=== PATIENT | male | born 1975 | race American Indian/Alaskan Native ===

== ENCOUNTER 2019-05-26 12:07 | Emergency (ER) | payer BC ==
--- NOTE | 2019-05-26 12:18 | Emergency Department Report ---
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 He was found to be unreachable by Internet. Police were notified. Apparently they have been out to the home more than once per the medics. Today the patient was found in a state of extremely poor hygiene with multiple empty bottles of alcohol. He was oriented to person but lacked adequate mental capacity to refuse care which he did. He was transported as a mentally incapacitated patient for medical screening at my direction. Medics state that the patient was very lethargic but able to speak in short sentences. Did not have a specific complaint. He was nonambulatory. He could stand only on substantial assistance. Medics questioned whether he had weakness of his left leg. On arrival he appears to have pain on passive range of motion of the left hip/pelvic area. He is able to normally dorsiflex and plantar flex his left foot. He is not found to have any other obvious focal deficit. He does not appear to be suffering from a stroke syndrome. He was found to be hypertensive in the field. -: days(s) Location: pelvis, left - Related Data Home Medications Medication Instructions Recorded Confirmed Last Taken No Known Home Medications [No 05/26/19 05/26/19 Unknown Reported Home Medications] Allergies Allergy/AdvReac Type Severity Reaction Status Date / Time No Known Allergies Allergy Unverified 05/26/19 12:18 ED Review of Systems ROS: Stated complaint: AMS Other details as noted in HPI Comment: Unobtainable due to pts medical conditions ED Past Medical Hx - Past Medical History Hx Hypertension: Yes - Social History Substance Use Type: Alcohol - Medications Home Medications: Home Medications Medication Instructions Recorded Confirmed Last Taken Type No Known Home Medications [No 05/26/19 05/26/19 Unknown History Reported Home Medications] ED Physical Exam - General Limitations: Altered Mental Status General appearance: lethargic - Head Head exam: Present: atraumatic, normocephalic - Eye Eye exam: Present: normal appearance, PERRL, EOMI. Absent: scleral icterus - ENT ENT exam: Present: mucous membranes dry - Neck Neck exam: Present: normal inspection. Absent: tenderness, meningismus - Respiratory Respiratory exam: Present: normal lung sounds bilaterally - Cardiovascular Cardiovascular Exam: Present: regular rate, normal rhythm. Absent: systolic murmur, diastolic murmur, rubs, gallop - GI/Abdominal GI/Abdominal exam: Present: soft, normal bowel sounds. Absent: distended, tenderness, guarding, rebound - Extremities Exam Extremities exam: Present: other (Pain on passive range of motion of the left hip) - Back Exam Back exam: Present: other (Unable to examine) - Neurological Exam Neurological exam: Present: altered, CN II-XII intact (As testable), motor sensory deficit (Sensory appears to be intact. There is loss of extension of th e left leg at the hip. Exam is at the knee is limited but appears to be weak as well. Patient was able to dorsi and plantar flex the foot.) - Psychiatric Psychiatric exam: Present: agitated, flat affect - Skin Skin exam: Present: warm, dry, intact, normal color. Absent: rash ED Course Vital Signs 05/26/19 05/26/19 05/26/19 12:08 12:11 12:15 Temperature 97.9 F Pulse Rate 110 H 110 H 110 H Respiratory 27 H 17 17 Rate Blood Pressure 184/124 184/124 O2 Sat by Pulse 94 97 97 Oximetry 05/26/19 05/26/19 05/26/19 12:30 12:46 13:00 Temperature Pulse Rate Respiratory Rate Blood Pressure 184/124 191/121 188/113 O2 Sat by Pulse 96 96 96 Oximetry 05/26/19 05/26/19 05/26/19 13:16 13:28 13:30 Temperature Pulse Rate 105 H 105 H 101 H Respiratory 21 19 Rate Blood Pressure 199/115 199/115 O2 Sat by Pulse 97 98 Oximetry 05/26/19 05/26/19 14:00 14:28 Temperature Pulse Rate 97 H 94 H Respiratory 19 Rate Blood Pressure 161/107 196/118 O2 Sat by Pulse 98 Oximetry - Reevaluation(s) Reevaluation #1: Blood pressure improved. Cardene never initiated. Discussed with neuro heavy equipment technician Dr. Blackwell. He recommended a saline bolus. This is ordered. He also accepted the patient for transfer to [facility]. 05/26/19 15:32 Reevaluation #2: This is a patient with a subacute pontine stroke, presumed rhabdomyolysis and acute kidney injury with severe acute renal failure, leukocytosis and possible sepsis with accelerated hypertension. He is currently a very high complexity patient needing additional acute work-up to include MR studies which are unavailable here, and neuro ICU which is unavailable here and multiple consultants. Dr. Kendall Blackwell the neuro heavy equipment technician at [facility] was very kind to accept this patient to the ICU at [facility]. The patient is in stable condition for transfer. There are many advantages to this patient and transferring him to a tertiary care center. 05/26/19 15:40 Reevaluation #3: I spoke with the neurologist recreation facility manager. He agreed this patient is not a candidate for TPA. 05/26/19 15:42 ED Medical Decision Making - Lab Data Result diagrams: 05/26/19 12:53 05/26/19 12:53 Laboratory Results - last 24 hr 05/26/19 05/26/19 12:53 12:53 WBC 23.9 H RBC 6.67 H Hgb 19.2 H Hct 57.8 H MCV 87 MCH 29 MCHC 33 RDW 15.1 Lymph % (Auto) Rehabilitation Aide/Scheduler Cowley % (Auto) Rehabilitation Aide/Scheduler Eos % (Auto) Rehabilitation Aide/Scheduler Baso % (Auto) Rehabilitation Aide/Scheduler Lymph # Rehabilitation Aide/Scheduler Cowley # Rehabilitation Aide/Scheduler Eos # Rehabilitation Aide/Scheduler Baso # Rehabilitation Aide/Scheduler Seg Neutrophils % Rehabilitation Aide/Scheduler Seg Neutrophils # Rehabilitation Aide/Scheduler PT 16.2 H INR 1.28 H APTT 34.5 Laboratory Results - last 24 hr 05/26/19 05/26/19 05/26/19 12:53 12:53 12:53 WBC 23.9 H RBC 6.67 H Hgb 19.2 H Hct 57.8 H MCV 87 MCH 29 MCHC 33 RDW 15.1 Lymph % (Auto) Rehabilitation Aide/Scheduler Cowley % (Auto) Rehabilitation Aide/Scheduler Eos % (Auto) Rehabilitation Aide/Scheduler Baso % (Auto) Rehabilitation Aide/Scheduler Lymph # Rehabilitation Aide/Scheduler Cowley # Rehabilitation Aide/Scheduler Eos # Rehabilitation Aide/Scheduler Baso # Rehabilitation Aide/Scheduler Seg Neutrophils % Rehabilitation Aide/Scheduler Seg Neutrophils # Rehabilitation Aide/Scheduler PT INR APTT Sodium 138 Potassium 5.5 H Chloride 91.3 L Carbon Dioxide 15 L Anion Gap 37 BUN 94 H Creatinine 11.5 H Estimated GFR 5 BUN/Creatinine Ratio 8 Glucose 116 H Lactic Acid Calcium 7.9 L Magnesium Total Bilirubin Direct Bilirubin Indirect Bilirubin AST ALT Alkaline Phosphatase Ammonia 47.0 CK-MB (CK-2) 31.1 H Troponin T NT-Pro-B Natriuret Pep Total Protein Albumin Albumin/Globulin Ratio Salicylates Acetaminophen Plasma/Serum Alcohol 05/26/19 05/26/1905/25/20 12:53 12:53 12:53 WBC RBC Hgb Hct MCV MCH MCHC RDW Lymph % (Auto) Cowley % (Auto) Eos % (Auto) Baso % (Auto) Lymph # [place] # Eos # Baso # Seg Neutrophils % Seg Neutrophils # PT 16.2 H INR 1.28 H APTT 34.5 Sodium Potassium Chloride Carbon Dioxide Anion Gap BUN Creatinine Estimated GFR BUN/Creatinine Ratio Glucose Lactic Acid Calcium Magnesium 3.80 H Total Bilirubin 1.00 Direct Bilirubin 0.5 H Indirect Bilirubin 0.5 AST 561 H ALT 118 H Alkaline Phosphatase 136 H Ammonia CK-MB (CK-2) Troponin T 0.050 H NT-Pro-B Natriuret Pep 969.8 H Total Protein 7.9 Albumin 4.1 Albumin/Globulin Ratio 1.1 Salicylates Acetaminophen Plasma/Serum Alcohol < 0.01 05/26/19 05/26/19 05/26/19 12:53 12:53 12:53 WBC RBC Hgb Hct MCV MCH MCHC RDW Lymph % (Auto) Cowley % (Auto) Eos % (Auto) Baso % (Auto) Lymph # [place] # Eos # Baso # Seg Neutrophils % Seg Neutrophils # PT INR APTT Sodium Potassium Chloride Carbon Dioxide Anion Gap BUN Creatinine Estimated GFR BUN/Creatinine Ratio Glucose Lactic Acid 3.10 H* Calcium Magnesium Total Bilirubin Direct Bilirubin Indirect Bilirubin AST ALT Alkaline Phosphatase Ammonia CK-MB (CK-2) Troponin T NT-Pro-B Natriuret Pep Total Protein Albumin Albumin/Globulin Ratio Salicylates < 0.3 L Acetaminophen < 5.0 L Plasma/Serum Alcohol Laboratory Results - last 24 hr 05/26/19 05/26/19 05/26/19 12:53 12:53 12:53 WBC 23.9 H RBC 6.67 H Hgb 19.2 H Hct 57.8 H MCV 87 MCH 29 MCHC 33 RDW 15.1 Plt Count 285 Lymph % (Auto) Rehabilitation Aide/Scheduler Cowley % (Auto) Rehabilitation Aide/Scheduler Eos % (Auto) Rehabilitation Aide/Scheduler Baso % (Auto) Rehabilitation Aide/Scheduler Lymph # Rehabilitation Aide/Scheduler Cowley # Rehabilitation Aide/Scheduler Eos # Rehabilitation Aide/Scheduler Baso # Rehabilitation Aide/Scheduler Add Manual Diff Complete Total Counted 100 Seg Neutrophils % Rehabilitation Aide/Scheduler Seg Neuts % (Manual) 89.0 H Band Neutrophils % 0 Lymphocytes % (Manual) 8.0 L Reactive Lymphs % (Man) 0 Monocytes % (Manual) 3.0 Eosinophils % (Manual) 0 Basophils % (Manual) 0 Metamyelocytes % 0 Myelocytes % 0 Promyelocytes % 0 Blast Cells % 0 Nucleated RBC % Not Reportable Seg Neutrophils # Rehabilitation Aide/Scheduler Seg Neutrophils # Man 21.3 H Band Neutrophils # 0.0 Lymphocytes # (Manual) 1.9 Abs React Lymphs (Man) 0.0 Monocytes # (Manual) 0.7 Eosinophils # (Manual) 0.0 Basophils # (Manual) 0.0 Metamyelocytes # 0.0 Myelocytes # 0.0 Promyelocytes # 0.0 Blast Cells # 0.0 WBC Morphology Not Reportable Hypersegmented Neuts Not Reportable Hyposegmented Neuts Not Reportable Hypogranular Neuts Not Reportable Smudge Cells Not Reportable Toxic Granulation Not Reportable Toxic Vacuolation Not Reportable Dohle Bodies Not Reportable Pelger-Huet Anomaly Not Reportable Moris Rods Not Reportable Platelet Estimate Consistent w auto Clumped Platelets Not Reportable Plt Clumps, EDTA Not Reportable Large Platelets Not Reportable Giant Platelets Few Platelet Satelliting Not Reportable Plt Morphology Comment Not Reportable RBC Morphology Normal Dimorphic RBCs Not Reportable Polychromasia Not Reportable Hypochromasia Not Reportable Poikilocytosis Not Reportable Anisocytosis Not Reportable Microcytosis Not Reportable Macrocytosis Not Reportable Spherocytes Not Reportable Pappenheimer Bodies Not Reportable Sickle Cells Not Reportable Target Cells Not Reportable Tear Drop Cells Not Reportable Ovalocytes Not Reportable Helmet Cells Not Reportable [place] Bodies Not Reportable [place] Rings Not Reportable Irving Cells Not Reportable Bite Cells Not Reportable Crenated Cell Not Reportable Elliptocytes Not Reportable Acanthocytes (Spur) Not Reportable Rouleaux Not Reportable Hemoglobin C Crystals Not Reportable Schistocytes Not Reportable Malaria parasites Not Reportable Guillermo Bodies Not Reportable Hem Pathologist Commnt No PT INR APTT Sodium 138 Potassium 5.5 H Chloride 91.3 L Carbon Dioxide 15 L Anion Gap 37 BUN 94 H Creatinine 11.5 H Estimated GFR 5 BUN/Creatinine Ratio 8 Glucose 116 H Lactic Acid Calcium 7.9 L Magnesium Total Bilirubin Direct Bilirubin Indirect Bilirubin AST ALT Alkaline Phosphatase Ammonia 47.0 CK-MB (CK-2) 31.1 H Troponin T NT-Pro-B Natriuret Pep Total Protein Albumin Albumin/Globulin Ratio Triglycerides Cholesterol LDL Cholesterol Direct HDL Cholesterol Cholesterol/HDL Ratio Salicylates Acetaminophen Plasma/Serum Alcohol 05/26/19 05/26/19 05/26/19 12:53 12:53 12:53 WBC RBC Hgb Hct MCV MCH MCHC RDW Plt Count Lymph % (Auto) [place] % (Auto) Eos % (Auto) Baso % (Auto) Lymph # [place] # Eos # Baso # Add Manual Diff Total Counted Seg Neutrophils % Seg Neuts % (Manual) Band Neutrophils % Lymphocytes % (Manual) Reactive Lymphs % (Man) Monocytes % (Manual) Eosinophils % (Manual) Basophils % (Manual) Metamyelocytes % Myelocytes % Promyelocytes % Blast Cells % Nucleated RBC % Seg Neutrophils # Seg Neutrophils # Man Band Neutrophils # Lymphocytes # (Manual) Abs React Lymphs (Man) Monocytes # (Manual) Eosinophils # (Manual) Basophils # (Manual) Metamyelocytes # Myelocytes # Promyelocytes # Blast Cells # WBC Morphology Hypersegmented Neuts Hyposegmented Neuts Hypogranular Neuts Smudge Cells Toxic Granulation Toxic Vacuolation Dohle Bodies Pelger-Huet Anomaly Moris Rods Platelet Estimate Clumped Platelets Plt Clumps, EDTA Large Platelets Giant Platelets Platelet Satelliting Plt Morphology Comment RBC Morphology Dimorphic RBCs Polychromasia Hypochromasia Poikilocytosis Anisocytosis Microcytosis Macrocytosis Spherocytes Pappenheimer Bodies Sickle Cells Target Cells Tear Drop Cells Ovalocytes Helmet Cells [place] Bodies Whiteclay Rings Chi Cells Bite Cells Crenated Cell Elliptocytes Acanthocytes (Spur) Rouleaux Hemoglobin C Crystals Schistocytes Malaria parasites Guillermo Bodies Hem Pathologist Commnt PT 16.2 H INR 1.28 H APTT 34.5 Sodium Potassium Chloride Carbon Dioxide Anion Gap BUN Creatinine Estimated GFR BUN/Creatinine Ratio Glucose Lactic Acid Calcium Magnesium 3.80 H Total Bilirubin 1.00 Direct Bilirubin 0.5 H Indirect Bilirubin 0.5 AST 561 H ALT 118 H Alkaline Phosphatase 136 H Ammonia CK-MB (CK-2) Troponin T 0.050 H NT-Pro-B Natriuret Pep 969.8 H Total Protein 7.9 Albumin 4.1 Albumin/Globulin Ratio 1.1 Triglycerides 293 H Cholesterol 221 H LDL Cholesterol Direct 137 H HDL Cholesterol 34 L Cholesterol/HDL Ratio 6.50 Salicylates Acetaminophen Plasma/Serum Alcohol < 0.01 05/26/19 05/26/19 05/26/19 12:53 12:53 12:53 WBC RBC Hgb Hct MCV MCH MCHC RDW Plt Count Lymph % (Auto) [place] % (Auto) Eos % (Auto) Baso % (Auto) Lymph # [place] # Eos # Baso # Add Manual Diff Total Counted Seg Neutrophils % Seg Neuts % (Manual) Band Neutrophils % Lymphocytes % (Manual) Reactive Lymphs % (Man) Monocytes % (Manual) Eosinophils % (Manual) Basophils % (Manual) Metamyelocytes % Myelocytes % Promyelocytes % Blast Cells % Nucleated RBC % Seg Neutrophils # Seg Neutrophils # Man Band Neutrophils # Lymphocytes # (Manual) Abs React Lymphs (Man) Monocytes # (Manual) Eosinophils # (Manual) Basophils # (Manual) Metamyelocytes # Myelocytes # Promyelocytes # Blast Cells # WBC Morphology Hypersegmented Neuts Hyposegmented Neuts Hypogranular Neuts Smudge Cells Toxic Granulation Toxic Vacuolation Dohle Bodies Pelger-Huet Anomaly Moris Rods Platelet Estimate Clumped Platelets Plt Clumps, EDTA Large Platelets Giant Platelets Platelet Satelliting Plt Morphology Comment RBC Morphology Dimorphic RBCs Polychromasia Hypochromasia Poikilocytosis Anisocytosis Microcytosis Macrocytosis Spherocytes Pappenheimer Bodies Sickle Cells Target Cells Tear Drop Cells Ovalocytes Helmet Cells [place] Bodies [place]cl[place] Rings Chi Cells Bite Cells Crenated Cell Elliptocytes Acanthocytes (Spur) Rouleaux Hemoglobin C Crystals Schistocytes Malaria parasites Guillermo Bodies Hem Pathologist Commnt PT INR APTT Sodium Potassium Chloride Carbon Dioxide Anion Gap BUN Creatinine Estimated GFR BUN/Creatinine Ratio Glucose Lactic Acid 3.10 H* Calcium Magnesium Total Bilirubin Direct Bilirubin Indirect Bilirubin AST ALT Alkaline Phosphatase Ammonia CK-MB (CK-2) Troponin T NT-Pro-B Natriuret Pep Total Protein Albumin Albumin/Globulin Ratio Triglycerides Cholesterol LDL Cholesterol Direct HDL Cholesterol Cholesterol/HDL Ratio Salicylates < 0.3 L Acetaminophen < 5.0 L Plasma/Serum Alcohol Laboratory Results - last 24 hr 05/26/19 05/26/19 05/26/19 12:53 12:53 12:53 WBC 23.9 H RBC 6.67 H Hgb 19.2 H Hct 57.8 H MCV 87 MCH 29 MCHC 33 RDW 15.1 Plt Count 285 Lymph % (Auto) Rehabilitation Aide/Scheduler [place] % (Auto) Rehabilitation Aide/Scheduler Eos % (Auto) Rehabilitation Aide/Scheduler Baso % (Auto) Rehabilitation Aide/Scheduler Lymph # Rehabilitation Aide/Scheduler [place]ley # Rehabilitation Aide/Scheduler Eos # Rehabilitation Aide/Scheduler Baso # Rehabilitation Aide/Scheduler Add Manual Diff Complete Total Counted 100 Seg Neutrophils % Rehabilitation Aide/Scheduler Seg Neuts % (Manual) 89.0 H Band Neutrophils % 0 Lymphocytes % (Manual) 8.0 L Reactive Lymphs % (Man) 0 Monocytes % (Manual) 3.0 Eosinophils % (Manual) 0 Basophils % (Manual) 0 Metamyelocytes % 0 Myelocytes % 0 Promyelocytes % 0 Blast Cells % 0 Nucleated RBC % Not Reportable Seg Neutrophils # Rehabilitation Aide/Scheduler Seg Neutrophils # Man 21.3 H Band Neutrophils # 0.0 Lymphocytes # (Manual) 1.9 Abs React Lymphs (Man) 0.0 Monocytes # (Manual) 0.7 Eosinophils # (Manual) 0.0 Basophils # (Manual) 0.0 Metamyelocytes # 0.0 Myelocytes # 0.0 Promyelocytes # 0.0 Blast Cells # 0.0 WBC Morphology Not Reportable Hypersegmented Neuts Not Reportable Hyposegmented Neuts Not Reportable Hypogranular Neuts Not Reportable Smudge Cells Not Reportable Toxic Granulation Not Reportable Toxic Vacuolation Not Reportable Dohle Bodies Not Reportable Pelger-Huet Anomaly Not Reportable Moris Rods Not Reportable Platelet Estimate Consistent w auto Clumped Platelets Not Reportable Plt Clumps, EDTA Not Reportable Large Platelets Not Reportable Giant Platelets Few Platelet Satelliting Not Reportable Plt Morphology Comment Not Reportable RBC Morphology Normal Dimorphic RBCs Not Reportable Polychromasia Not Reportable Hypochromasia Not Reportable Poikilocytosis Not Reportable Anisocytosis Not Reportable Microcytosis Not Reportable Macrocytosis Not Reportable Spherocytes Not Reportable Pappenheimer Bodies Not Reportable Sickle Cells Not Reportable Target Cells Not Reportable Tear Drop Cells Not Reportable Ovalocytes Not Reportable Helmet Cells Not Reportable [place] Bodies Not Reportable [place] Rings Not Reportable Irving Cells Not Reportable Bite Cells Not Reportable Crenated Cell Not Reportable Elliptocytes Not Reportable Acanthocytes (Spur) Not Reportable Rouleaux Not Reportable Hemoglobin C Crystals Not Reportable Schistocytes Not Reportable Malaria parasites Not Reportable Guillermo Bodies Not Reportable Hem Pathologist Commnt No PT INR APTT Sodium 138 Potassium 5.5 H Chloride 91.3 L Carbon Dioxide 15 L Anion Gap 37 BUN 94 H Creatinine 11.5 H Estimated GFR 5 BUN/Creatinine Ratio 8 Glucose 116 H Lactic Acid Calcium 7.9 L Magnesium Total Bilirubin Direct Bilirubin Indirect Bilirubin AST ALT Alkaline Phosphatase Ammonia 47.0 CK-MB (CK-2) 31.1 H Troponin T NT-Pro-B Natriuret Pep Total Protein Albumin Albumin/Globulin Ratio Triglycerides Cholesterol LDL Cholesterol Direct HDL Cholesterol Cholesterol/HDL Ratio Salicylates Acetaminophen Plasma/Serum Alcohol 05/26/19 05/26/19 05/26/19 12:53 12:53 12:53 WBC RBC Hgb Hct MCV MCH MCHC RDW Plt Count Lymph % (Auto) [place] % (Auto) Eos % (Auto) Baso % (Auto) Lymph # [place] # Eos # Baso # Add Manual Diff Total Counted Seg Neutrophils % Seg Neuts % (Manual) Band Neutrophils % Lymphocytes % (Manual) Reactive Lymphs % (Man) Monocytes % (Manual) Eosinophils % (Manual) Basophils % (Manual) Metamyelocytes % Myelocytes % Promyelocytes % Blast Cells % Nucleated RBC % Seg Neutrophils # Seg Neutrophils # Man Band Neutrophils # Lymphocytes # (Manual) Abs React Lymphs (Man) Monocytes # (Manual) Eosinophils # (Manual) Basophils # (Manual) Metamyelocytes # Myelocytes # Promyelocytes # Blast Cells # WBC Morphology Hypersegmented Neuts Hyposegmented Neuts Hypogranular Neuts Smudge Cells Toxic Granulation Toxic Vacuolation Dohle Bodies Pelger-Huet Anomaly Moris Rods Platelet Estimate Clumped Platelets Plt Clumps, EDTA Large Platelets Giant Platelets Platelet Satelliting Plt Morphology Comment RBC Morphology Dimorphic RBCs Polychromasia Hypochromasia Poikilocytosis Anisocytosis Microcytosis Macrocytosis Spherocytes Pappenheimer Bodies Sickle Cells Target Cells Tear Drop Cells Ovalocytes Helmet Cells [place] Bodies Whiteclay Rings Chi Cells Bite Cells Crenated Cell Elliptocytes Acanthocytes (Spur) Rouleaux Hemoglobin C Crystals Schistocytes Malaria parasites Guillermo Bodies Hem Pathologist Commnt PT 16.2 H INR 1.28 H APTT 34.5 Sodium Potassium Chloride Carbon Dioxide Anion Gap BUN Creatinine Estimated GFR BUN/Creatinine Ratio Glucose Lactic Acid Calcium Magnesium 3.80 H Total Bilirubin 1.00 Direct Bilirubin 0.5 H Indirect Bilirubin 0.5 AST 561 H ALT 118 H Alkaline Phosphatase 136 H Ammonia CK-MB (CK-2) Troponin T 0.050 H NT-Pro-B Natriuret Pep 969.8 H Total Protein 7.9 Albumin 4.1 Albumin/Globulin Ratio 1.1 Triglycerides 293 H Cholesterol 221 H LDL Cholesterol Direct 137 H HDL Cholesterol 34 L Cholesterol/HDL Ratio 6.50 Salicylates Acetaminophen Plasma/Serum Alcohol < 0.01 05/26/19 05/26/19 05/26/19 12:53 12:53 12:53 WBC RBC Hgb Hct MCV MCH MCHC RDW Plt Count Lymph % (Auto) [place] % (Auto) Eos % (Auto) Baso % (Auto) Lymph # [place] # Eos # Baso # Add Manual Diff Total Counted Seg Neutrophils % Seg Neuts % (Manual) Band Neutrophils % Lymphocytes % (Manual) Reactive Lymphs % (Man) Monocytes % (Manual) Eosinophils % (Manual) Basophils % (Manual) Metamyelocytes % Myelocytes % Promyelocytes % Blast Cells % Nucleated RBC % Seg Neutrophils # Seg Neutrophils # Man Band Neutrophils # Lymphocytes # (Manual) Abs React Lymphs (Man) Monocytes # (Manual) Eosinophils # (Manual) Basophils # (Manual) Metamyelocytes # Myelocytes # Promyelocytes # Blast Cells # WBC Morphology Hypersegmented Neuts Hyposegmented Neuts Hypogranular Neuts Smudge Cells Toxic Granulation Toxic Vacuolation Dohle Bodies Pelger-Huet Anomaly Moris Rods Platelet Estimate Clumped Platelets Plt Clumps, EDTA Large Platelets Giant Platelets Platelet Satelliting Plt Morphology Comment RBC Morphology Dimorphic RBCs Polychromasia Hypochromasia Poikilocytosis Anisocytosis Microcytosis Macrocytosis Spherocytes Pappenheimer Bodies Sickle Cells Target Cells Tear Drop Cells Ovalocytes Helmet Cells [place] Bodies [place] Rings [place] Cells Bite Cells Crenated Cell Elliptocytes Acanthocytes (Spur) Rouleaux Hemoglobin C Crystals Schistocytes Malaria parasites Guillermo Bodies Hem Pathologist Commnt PT INR APTT Sodium Potassium Chloride Carbon Dioxide Anion Gap BUN Creatinine Estimated GFR BUN/Creatinine Ratio Glucose Lactic Acid 3.10 H* Calcium Magnesium Total Bilirubin Direct Bilirubin Indirect Bilirubin AST ALT Alkaline Phosphatase Ammonia CK-MB (CK-2) Troponin T NT-Pro-B Natriuret Pep Total Protein Albumin Albumin/Globulin Ratio Triglycerides Cholesterol LDL Cholesterol Direct HDL Cholesterol Cholesterol/HDL Ratio Salicylates < 0.3 L Acetaminophen < 5.0 L Plasma/Serum Alcohol - EKG Data -: EKG Interpreted by Me EKG shows normal: sinus rhythm, axis, intervals, QRS complexes, ST-T waves Rate: normal - EKG Data Interpretation: nonspecific ST-T wave addy Critical Care Time: Yes Critical care time in (mins) excluding proc time.: 140 Critical care attestation.: If time is entered above; I have spent that time in minutes in the direct care of this critically ill patient, excluding procedure time. ED Disposition Clinical Impression: Right pontine stroke, Acute kidney injury, Malignant hypertension Leukocytosis Qualifiers: Leukocytosis type: unspecified Qualified Code(s): D72.829 - Elevated white blood cell count, unspecified Rhabdomyolysis Qualifiers: Rhabdomyolysis type: non-traumatic Qualified Code(s): M62.82 - Rhabdomyolysis Disposition: DC/TX-70 ANOTHER TYPE HLTHCARE Is pt being admited?: No Does the pt Need Aspirin: Yes Condition: Stable Instructions: Hypertension (ED) [facility]: [facility] JUANITA [Primary Care Provider] - 3-5 Days Time of Disposition: 15:43 - Assessment Assessment Interval: Baseline - Level of Consciousness 1a. Level of Consciousness: arousable/minor stimuli - LOC Questions 1b. LOC Questions: answers 1 question correctly - LOC Command 1c. LOC Commands: performs tasks correctly - Best Gaze 2. Best Gaze: normal - Visual 3. Visual: no visual loss - Facial Palsy 4. Facial Palsy: normal symmetrical movement - Motor Arm 5a. Motor Arm Left: no drift 5b. Motor Arm Right: no drift - Motor Leg 6a. Motor Leg Left: some gravity effort 6b. Motor Leg Right: no drift - Limb Ataxia 7. Limb Ataxia: absent - Sensory 8. Sensory: normal - Best Language 9. Best Language: mild/moderate aphasia - Dysarthria 10. Dysarthria: normal - Extinction and Inattention 11. Extinction/Inattention: no abnormality - Scoring Total Score: 5 Stroke Severity: Moderate Stroke
[2019-05-26 13:27] LABS: Hematocrit 57.8 % (35.5-45.6); Hemoglobin 19.2 gm/dl (11.8-15.2); Mean Corpuscular HGB Conc 33 % (32-34); Mean Corpuscular Volume 87 fl (84-94); Red Blood Count 6.67 M/mm3 (3.65-5.03); Red Cell Distribution Width 15.1 % (13.2-15.2)
[2019-05-26 13:28] LABS: INR 1.28 (0.87-1.13)
[2019-05-26 13:29] LABS: Partial Thromboplastin Time 34.5 Sec. (24.2-36.6)
--- NOTE | 2019-05-26 13:29 | XRay Report ---
CHEST 1 VIEW INDICATION: hypertension. COMPARISON: None FINDINGS: Support devices: None. Heart: Within normal limits. Lungs/Pleura: No acute air space or interstitial disease. Additional findings: None. IMPRESSION: Unremarkable AP chest RIGHT HIP 2 VIEWS INDICATION: Right hip pain, trauma. COMPARISON: None. IMPRESSION: No acute osseous or soft tissue abnormality. Mild to moderate osteoarthritic changes are identified at the right hip. Normal bone mineralization. Signer Name: Hi Cooper Jr, MD Signed: 05/26/2019 1:25 PM Workstation Name: [id number]
[2019-05-26] MEDS ORDERED: CEFEPIME/NS 1 GM/100 ML 1 GM/100 ML BAG IV ONE (13:31)
[2019-05-26 13:40] LABS: Creatine Kinase MB 31.1 ng/mL (0.0-4.0)
[2019-05-26 13:42] LABS: Calcium 7.9 mg/dL (8.4-10.2)
[2019-05-26 13:46] LABS: Albumin 4.1 g/dL (3.9-5); Bilirubin,Direct 0.5 mg/dL (0-0.2)
[2019-05-26] MEDS ORDERED: SODIUM CHLORIDE 0.9% 1000 ML 1,000 ML IV ONE ×2 (13:59→15:31)
[2019-05-26] MEDS ORDERED: VANCOMYCIN 2,000 MG in SODIUM CHLORIDE 0.9% 500 ML 500 ML IV ONE (14:00)
[2019-05-26] MEDS ORDERED: VANCOMYCIN PHARMACY TO DOSE IV SCH (14:00)
--- NOTE | 2019-05-26 14:15 | Cat Scan Report ---
CT head/brain wo con INDICATION: Hypertension, altered mental status. TECHNIQUE: Routine CT head without contrast. All CT scans at this location are performed using CT dos e reduction for ALARA by means of automated exposure control. COMPARISON: None. FINDINGS: BRAIN / INTRACRANIAL CONTENTS: There is focal hypoattenuation in the left paracentral naldo concerning for possible acute or subacute infarct. There is a lenticular shaped area of extra-axial hyperattenuation over the right parietal convexity t hat may represent a meningioma. A subacute small volume epidural or subdural hematoma could also appe ar similar though. There is subjacent sulcal effacement. There is also some hypoattenuation in the carmona bjacent right parietal white matter that could represent brain edema secondary to the this lesion. Re mainder of the brain otherwise appears normal. ORBITS: No significant abnormality of visualized orbits. SINUSES / MASTOIDS: No significant abnormality of visualized sinuses and mastoid air cells. ADDITIONAL FINDINGS: None. IMPRESSION: 1. Focal area of hypoattenuation in the left paracentral naldo concerning for possible pontine infarct . 2. Small lenticular area of extra-axial hyperattenuation over the right parietal convexity with subja cent sulcal effacement and mild white matter edema. This probably indicates a meningioma but a subacu te epidural or subdural hematoma could also appear similar. Findings discussed with Dr. Kohler at 1:11 PM central time on 05/26/2019. Signer Name: Leobardo Caceres MD Signed: 05/26/2019 2:11 PM Workstation Name: [id number]
[2019-05-26 14:16] LABS: Chol/HDL Ratio 6.5 %
[2019-05-26] MEDS ORDERED: SODIUM BICARB 8.4% 50 MEQ/50 ML SYRINGE IV ONE (14:22)
[2019-05-26 14:24] LABS: Basophils % (Manual) 0 % (0.0-1.8); Eosinophils % (Manual) 0 % (0.0-4.3); Platelet Estimate Consistent w Auto; RBC Morphology Normal; Total Cells Counted 100
[2019-05-26 14:25] LABS: Giant Platelets Few
[2019-05-26 14:27] LABS: Platelet Count 285 K/mm3 (140-440)
[2019-05-26] MEDS ORDERED: niCARdipine 50 MG in SODIUM CHLORIDE 0.9% 250ML 230 ML IV SCH (15:00)
[2019-05-26] MEDS ORDERED: ASPIRIN 300 MG RECT SUPP PR ONE (15:36)
[2019-05-26 16:32] VITALS: BP 162/91
== END 2019-05-26 17:35 | disposition other institution (70) ==
LOC: ED 12:07
DX: N17.9 Acute kidney failure, unspecified (principal); I63.50 Cerebral infarction due to unspecified occlusion or stenosis of unspecified cerebral artery; D72.829 Elevated white blood cell count, unspecified; I10 Essential (primary) hypertension; M62.82 Rhabdomyolysis; R41.82 Altered mental status, unspecified; M25.551 Pain in right hip
CPT/HCPCS: 36415; 70450; 71045; 73502; 80048; 80061; 80076; 82140; 82550; 82553; 83735; 83880; 84484; 85007; 85025; 85610; 85730; 87040; 93005; 93010; 96365; 96366; 96367; 96375; 99291; 99292; J0692; J3370; J7030; J7040; J7050; 80320; G0480